=== PATIENT | female | born 2000 ===

== ENCOUNTER 2021-03-30 12:56 | Emergency (ER) | payer OTHER ==
[2021-03-30 14:13] VITALS: BP 135/72
[2021-03-30] MEDS ORDERED: ONDANSETRON 4 MG ODT TAB PO ONE (14:13)
--- NOTE | 2021-03-30 14:15 | Emergency Department Report ---
ED General Adult HPI - General Chief complaint: Abdominal Pain Stated complaint: 14 WKS PREG ABD PAINS Time Seen by Provider: 03/30/21 14:12 Source: patient Mode of arrival: Ambulatory Limitations: No Limitations - History of Present Illness Initial comments: Patient is a 20-year-old female presents emergency room with complaints of lower abdominal discomfort that began yesterday. She describes it as a cramping sensation. She has associated nausea and vomiting. She states that she was taking Zofran for her vomiting during which she states significantly helped her symptoms but she ran out. She states that she tried to call her [employer] [employer] office yesterday but did not call back. She states that she goes to [facility]. She denies any fever, diarrhea, urinary symptoms, vaginal bleeding, abnormal vaginal discharge. No past medical history. No allergies medications for this her first . Last menstrual cycle December 22, 2020. - Related Data Allergies Allergy/AdvReac Type Severity Reaction Status Date / Time No Known Allergies Allergy Unverified 03/30/21 14:11 ED Review of Systems ROS: Stated complaint: 14 WKS PREG ABD PAINS Other details as noted in HPI Comment: All other systems reviewed and negative ED Past Medical Hx - Past Medical History Previous Medical History?: No - Surgical History Past Surgical History?: No ED Physical Exam - General Limitations: No Limitations General appearance: alert, in no apparent distress - Head Head exam: Present: atraumatic, normocephalic - Eye Eye exam: Present: normal appearance - ENT ENT exam: Present: mucous membranes moist - Respiratory Respiratory exam: Present: normal lung sounds bilaterally. Absent: respiratory distress, wheezes, rales, rhonchi, stridor, chest wall tenderness, accessory muscle use, decreased breath sounds, prolonged expiratory - Cardiovascular Cardiovascular Exam: Present: regular rate, normal rhythm, normal heart sounds. Absent: systolic murmur, diastolic murmur, gallop - GI/Abdominal GI/Abdominal exam: Present: soft, normal bowel sounds. Absent: distended, tenderness, guarding, rebound, rigid - Neurological Exam Neurological exam: Present: alert, oriented X3 - Psychiatric Psychiatric exam: Present: normal affect, normal mood - Skin Skin exam: Present: warm, dry, intact ED Course Vital Signs 03/30/21 14:12 Temperature 98.8 F Pulse Rate 114 H Respiratory 17 Rate Blood Pressure 135/72 [Right] O2 Sat by Pulse 100 Oximetry ED Medical Decision Making - Medical Decision Making Patient is a 20-year-old female presents emergency room with complaints of lower abdominal discomfort that began yesterday. She describes it as a cramping sensation. She has associated nausea and vomiting. She states that she was taking Zofran for her vomiting during which she states significantly helped her symptoms but she ran out. She states that she tried to call her [employer] office yesterday but did not call back. She states that she goes to [facility]. She denies any fever, diarrhea, urinary symptoms, vaginal bleeding, abnormal vaginal discharge. No past medical history. No allergies medications for this her first . Last menstrual cycle December 22, 2020. Vitals with mild tachycardia, otherwise stable. No abdominal tenderness on exam, no guarding, no rebound, no rigidity, normal sounds, no peritoneal signs. Advised patient that we would order labs, urine, ultrasound and then interpret results and discuss results. Patient was given ODT Zofran by nurse. After given medication appears patient has eloped from the emergency department. Lab attempted to call patient multiple times. Ultrasound attempted to call patient multiple times. I called patient on her number listed in her chart and she states that she left the emergency department and no longer wants to be seen and will follow up with her [employer]. I advised patient to follow-up as soon as possible and return immediately if she would like to continue her medical examination or she has new or worsening symptoms. Patient verbalized understanding. Patient is alert and oriented x4, she had no distracting injury, she has medical decision-making capacity. Critical care attestation.: If time is entered above; I have spent that time in minutes in the direct care of this critically ill patient, excluding procedure time. ED Disposition Clinical Impression: Abdominal pain during Qualifiers: Trimester: unspecified trimester Qualified Code(s): O26.899 - Other specified related conditions, unspecified trimester; R10.9 - Unspecified abdominal pain Nausea & vomiting Qualifiers: Vomiting type: unspecified Vomiting Intractability: non-intractable Qualified Code(s): R11.2 - Nausea with vomiting, unspecified Disposition: ELOPED Is pt being admited?: No Does the pt Need Aspirin: No Condition: Undetermined Instructions: Abdominal Pain (ED) Referrals: [facility] [Other] - PAU
[2021-03-30 15:25] LABS: Bilirubin,Urine NEG (Negative); Blood,Urine NEG (Negative); Color,Urine Amber (Yellow); Mucus,Urine FEW /HPF
== END 2021-03-30 16:06 | disposition left against medical advice (07) ==
LOC: ED 12:56
DX: O21.8 Other vomiting complicating pregnancy (principal); O26.899 Other specified pregnancy related conditions, unspecified trimester; R10.30 Lower abdominal pain, unspecified; Z3A.00 Weeks of gestation of pregnancy not specified
CPT/HCPCS: 81001; Q0162